=== PATIENT | male | born 1950 | race Caucasian/White ===

== ENCOUNTER 2025-02-12 11:11 | Outpatient (CLI) | payer OTHER ==
[2025-02-12 12:23] LABS: BASO % 0.7 % (0.1-1.2); EOS # 0.06 (0.04-0.54); EOS % 0.8 % (0.7-7.0); HEMATOCRIT 42.9 % (40.1-51.0); HEMOGLOBIN 14.1 g/dL (13.7-17.5); LYMPH # 1.16 (1.18-3.74); LYMPH % 15.2 % (19.3-53.1); MEAN CORPUSCULAR HEMOGLOBIN 27.2 pg (25.6-32.2); MONO # 0.87 (0.24-0.82); MONO % 11.4 % (4.7-12.5); NEUT # 5.45 (1.56-6.13); NEUT % 71.6 % (34.0-71.1); PLATELET COUNT 170 K/uL (163-369); RED BLOOD COUNT 5.18 M/uL (4.63-6.08); RED CELL DISTRIBUTION WIDTH 14.9 % (11.6-14.4)
[2025-02-12 12:53] LABS: INR 1.03; PARTIAL THROMBOPLASTIN TIME 25.9 SECONDS (22.0-34.0); PROTHROMBIN TIME 11.2 SECONDS (9.0-11.5)
== END 2025-02-12 11:18 | disposition home or self-care (01) ==
LOC: LAB 11:11
PROVIDERS: ATTEND Radiology Diagnostic Radiology
DX: R10.812 Left upper quadrant abdominal tenderness (principal)

== ENCOUNTER 2025-02-19 07:53 | Outpatient (CLI) | payer OTHER ==
[2025-02-19 11:00] VITALS: BP 177/73; O2SAT 99
[2025-02-19 11:30] VITALS: BP 161/83; O2SAT 99
[2025-02-19 11:45] VITALS: BP 147/86; O2SAT 99
[2025-02-19 12:00] VITALS: BP 146/80; O2SAT 99
== END 2025-02-19 07:55 | disposition home or self-care (01) ==
LOC: TOM 07:53
DX: N28.1 Cyst of kidney, acquired (principal); R10.812 Left upper quadrant abdominal tenderness

== ENCOUNTER 2025-02-19 12:27 | Outpatient (CLI) | payer OTHER | END 2025-02-19 12:46 | disposition home or self-care (01) | LOC: LAB 12:27 | PROVIDERS: ATTEND Radiology Diagnostic Radiology | DX: M15.0 Primary generalized (osteo)arthritis (principal) ==